=== PATIENT | female | born 1960 ===

== ENCOUNTER 2017-01-21 20:11 | Inpatient (IN) | payer BC, OTHER ==
[2017-01-21 20:14] VITALS: BMI 28.5
--- NOTE | 2017-01-21 20:48 | ED PDOC ---
Arrival/HPI - General Chief Complaint: Female Genitourinary Time Seen by Provider: 01/21/17 20:47 Historian: Patient - History of Present Illness Narrative History of Present Illness (Text): 01/21/17 20:48 This 56 yo female with pmh multiple UTI, pyelonephritis, htn, hypercholesterolemia, presents to tis ED for IV antibiotic treatment. Patient stated she has had multiple UTI this year. Patient developed urinary symptoms 2 1/2 [address] Nix, who recommended Macrobid. She finished Macrobid 7 days treatment last week. This week she saw Dr. Nix again, who repeat UA at her office 3 days ago, and ordered urine culture. Urine culture return today, and it shows multiple resisting bacteria. Dr. Nix called patient to go to ED. Patient brought a copy of urine culture report, which was printed on 01/20/2017, which shows sensitivity to Zosyn, Amikacin, Ertapenem, Gentamicin, Imipenem Only. Patient noted feeling intermittent chills, subjective low grade fever. Denies back pain, abdominal pain, sob, cp, goetz, rash, recent travel, or sick contact. Time/Duration: Other (see hpi) Context: Home Past Medical History - Provider Review Nursing Documentation Reviewed: Yes - Infectious Disease Hx of Infectious Diseases: None - Tetanus Immunization Tetanus Immunization: Unknown - Cardiac Hx Angina: No Hx Cardiac Arrhythmia: No Hx Circulatory Problems: No Hx Congestive Heart Failure: No Hx Heart Murmur: No Hx Heart Transplant: No Hx Hypertension: Yes Hx Internal Defibrillator: No Hx Mitral Valve Prolapse: No Hx Pacemaker: No Hx Peripheral Edema: No Hx Peripheral Vascular Disease: No - Pulmonary Hx Respiratory Disorders: No - Neurological Hx Neurological Disorder: No - HEENT Hx HEENT Disorder: No - Renal Hx Renal Disorder: No - Endocrine/Metabolic Hx Endocrine Disorders: No - Hematological/Oncological Hx Blood Disorders: No - Integumentary Hx Dermatological Disorder: No - Musculoskeletal/Rheumatological Hx Musculoskeletal Disorders: No Hx Falls: No - Gastrointestinal Hx Gastrointestinal Disorders: No - Genitourinary/Gynecological Hx Genitourinary Disorders: No Hx Reproductive Disorders: No Hx Urinary Tract Infection: Yes - Psychiatric Hx Psychophysiologic Disorder: No Hx Anxiety: Yes Hx Bipolar Disorder: No Hx Depression: Yes Hx Emotional Abuse: No Hx Physical Abuse: No Hx Schizophrenia: No Hx Sexual Abuse: No Hx Substance Use: No - Past Surgical History Past Surgical History: Non-Contributing - Surgical History Hx Cardiac Catheterization: No Hx Coronary Stent: No Hx Dilation and Curettage: Yes (1992) Other/Comment: Bladder lift with repair 03/2014 - Anesthesia Hx Anesthesia: Yes Hx Anesthesia Reactions: No Hx Malignant Hyperthermia: No - Suicidal Assessment Feels Threatened In Home Enviroment: No Family/Social History - Physician Review Nursing Documentation Reviewed: Yes Family/Social History: Other (non-contributory) Smoking Status: Never Smoked Hx Alcohol Use: No Hx Substance Use: No Hx Substance Use Treatment: No Allergies/Home Meds Allergies/Adverse Reactions: Allergies azithromycin [From Zithromax] Allergy (Verified 01/21/17 20:15) RASH cinoxacin Allergy (Verified 01/21/17 20:15) HEADACHE low BP diphenhydramine [From Benadryl] Allergy (Verified 01/21/17 20:15) FATIGUE low bp sulfamethoxazole [From Bactrim] Allergy (Verified 01/21/17 20:15) REDNESS trimethoprim [From Bactrim] Allergy (Verified 01/21/17 20:15) REDNESS Home Medications: Home Meds Medication Instructions Recorded Confirmed Lisinopril [Zestril] 20 mg PO BID 04/24/15 01/21/17 Metoprolol Tartrate [Lopressor] 25 mg PO HS 04/24/15 01/21/17 Sertraline HCl [Zoloft] 75 mg PO DAILY 04/24/15 01/21/17 LORazepam [Ativan] 0.5 mg PO DAILY PRN 01/21/17 01/21/17 Lurasidone HCl [Latuda] 1 tab PO DAILY 01/21/17 01/21/17 Review of Systems - Review of Systems Constitutional: Fevers. absent: Fatigue, Weight Change, Night Sweats Eyes: Normal ENT: Normal Respiratory: Normal. absent: SOB, Cough Cardiovascular: Normal. absent: Chest Pain, Palpitations Gastrointestinal: Normal. absent: Abdominal Pain, Nausea, Vomiting Genitourinary Female: Dysuria, Frequency. absent: Hematuria, Vaginal Bleeding, Vaginal Discharge Musculoskeletal: Normal. absent: Arthralgias, Back Pain, Neck Pain Skin: Normal. absent: Rash Neurological: Normal. absent: Headache, Dizziness, Focal Weakness, Gait Changes , Speech Changes, Facial Droop, Disequilibrium, Seizure Endocrine: Normal Hemo/Lymphatic: Normal Psychiatric: Normal Physical Exam Vital Signs Temp Pulse Resp BP Pulse Ox 01/21/17 20:50 156/95 H 01/21/17 20:20 99.1 F 75 18 162/112 H 97 Temperature: Afebrile Blood Pressure: Normal Pulse: Regular Respiratory Rate: Normal Appearance: Positive for: Well-Appearing, Non-Toxic, Comfortable Pain Distress: None Mental Status: Positive for: Alert and Oriented X 3 - Systems Exam Head: Present: Atraumatic, Normocephalic Pupils: Present: PERRL Extroacular Muscles: Present: EOMI Conjunctiva: Present: Normal Mouth: Present: Moist Mucous Membranes Neck: Present: Normal Range of Motion, Trachea Midline. No: Meningeal Signs, MIDLINE TENDERNESS, Paraspinal Tenderness, Lymphadenopathy Respiratory/Chest: Present: Clear to Auscultation, Good Air Exchange. No: Respiratory Distress, Accessory Muscle Use, Wheezes, Retracting, Rhonchi Cardiovascular: Present: Regular Rate and Rhythm, Normal S1, S2. No: Murmurs Abdomen: Present: Normal Bowel Sounds. No: Tenderness, Distention, Peritoneal Signs, Rebound, Guarding Back: Present: Normal Inspection. No: CVA Tenderness, Midline Tenderness, Paraspinal Tenderness Upper Extremity: Present: Normal Inspection, Normal ROM, NORMAL PULSES, Neurovascularly Intact, Capillary Refill < 2s. No: Cyanosis, Edema Lower Extremity: Present: Normal Inspection, NORMAL PULSES, Normal ROM, Neurovascularly Intact, Capillary Refill < 2 s. No: Edema Neurological: Present: GCS=15, CN II-XII Intact, Speech Normal, Motor Func Grossly Intact, Normal Sensory Function, Normal Cerebellar Funct, Gait Normal Skin: Present: Warm, Dry, Normal Color. No: Rashes Psychiatric: Present: Alert, Oriented x 3, Normal Insight, Normal Concentration Medical Decision Making ED Course and Treatment: 01/21/17 21:11 Urine culture demonstrates sensitivity to Zosyn . I will order this medication , labs, repeat urinalysis, urine culture, blood culture. 01/21/17 22:[address] Nix regarding patient history of multi resistant UTI. Dr. Fox agreed with plan for admission in Med Surg. Re-evaluation Time: 22:06 Reassessment Condition: Re-examined, Improving,but remains with symptoms - Lab Interpretations Lab Results: 01/21/17 20:40 01/21/17 20:40 Lab Results 01/21/17 20:40: PT 10.3, INR 0.95, APTT 31.2 H 01/21/17 20:40: Urine Color Yellow, Urine Appearance Sl cloudy, Urine pH 6.5, Ur Specific [place] 1.015, Urine Protein Negative, Urine Glucose (UA) Negative, Urine Ketones Negative, Urine Blood Trace-intact H, Urine Nitrate Positive H, Urine Bilirubin Negative, Urine Urobilinogen 0.2, Ur Leukocyte Esterase Large H , Urine RBC 5 - 10, Urine WBC Tntc, Urine Bacteria Many 01/21/17 20:40: Sodium 143, Potassium 3.7, Chloride 104, Carbon Dioxide 25, Anion Gap 18, BUN 19, Creatinine 0.7, Est GFR ( Amer) > 60, Est GFR (Non- Af Amer) > 60, Random Glucose 102, Calcium 9.2, Total Bilirubin 0.3, AST 15, ALT 26, Alkaline Phosphatase 73, Total Protein 7.0, Albumin 4.3, Globulin 2.7, Albumin/Globulin Ratio 1.6 01/21/17 20:40: WBC 5.6, RBC 4.25, Hgb 12.8, Hct 37.9, MCV 89.2, MCH 30.1, MCHC 33.8, RDW 12.6, Plt Count 234, MPV 8.7, Gran % 51.4, Lymph % (Auto) 38.2 H, Citrus % (Auto) 7.3 H, Eos % (Auto) 2.7, Baso % (Auto) 0.4, Gran # 2.90, Lymph # 2.2, Citrus # 0.4, Eos # 0.2, Baso # 0.02 I have reviewed the lab results: Yes Interpretation: Abnormal lab values (acute cystitis) - RAD Interpretation Radiology Orders: 01/21/17 20:59 CHEST PORTABLE [RAD] Stat - EKG Interpretation Interpreted by ED Physician: Yes (NSR @ 70 bpm. Normal interval) Type: 12 lead EKG Comparison: No previous EKG avail. - Medication Orders Current Medication Orders: Discontinued Medications Piperacillin Sod/Tazobactam Sod (Zosyn 4.5 Gm In Ns 100ml) 4.5 gm in 100 mls @ 200 mls/hr IVPB STAT STA PRN Reason: Protocol Stop: 01/21/17 21:27 Last Admin: 01/21/17 21:06 Dose: 200 mls/hr Sodium Chloride (Sodium Chloride 0.9%) 1,000 mls @ 999 mls/hr IV .Q1H1M STA Stop: 01/21/17 22:00 Last Admin: 01/21/17 21:08 Dose: 999 mls/hr Disposition/Present on Arrival - Present on Arrival Any Indicators Present on Arrival: No History of DVT/PE: No History of Uncontrolled Diabetes: No Urinary Catheter: No History of Decub. Ulcer: No History Surgical Site Infection Following: None - Disposition Have Diagnosis and Disposition been Completed?: Yes Diagnosis: Failure of outpatient treatment, Drug (multiple) resistant infection, Cystitis Disposition: HOSPITALIZED Disposition Time: 22:08 Patient Plan: Admission Condition: STABLE Forms: [employer] (Japanese)
[2017-01-21] MEDS ORDERED: Piperacill/Tazo 4.5gm in NS 4.5 GM/100 ML BAG IVPB STA (20:58)
[2017-01-21] MEDS ORDERED: Sodium Chloride 0.9% 1,000 ML IV STA (21:00)
[2017-01-21 21:13] LABS: BASO # 0.02 K/mm3 (0.0-2.0); BASO % 0.4 % (0.0-3.0); EOS # 0.2 (0.0-0.7); EOS % 2.7 % (1.5-5.0); GRAN # 2.9 (1.4-6.5); GRAN % 51.4 % (50.0-68.0); HEMATOCRIT 37.9 % (36.0-48.0); LYMPH # 2.2 (1.2-3.4); LYMPH % 38.2 % (22.0-35.0); MEAN CELL VOLUME 89.2 fl (80.0-105.0); MEAN CORPUSCULAR HEMOGLOBIN 30.1 pg (25.0-35.0); MEAN CORPUSCULAR HGB CONC 33.8 g/dl (31.0-37.0); MEAN PLATELET VOLUME 8.7 fl (7.0-11.0); MONO # 0.4 (0.1-0.6); MONO % 7.3 % (1.0-6.0); RED CELL DISTRIBUTION WIDTH 12.6 % (11.5-14.5); WHITE BLOOD COUNT 5.6 10^3/ul (4.5-11.0)
[2017-01-21 21:14] LABS: PH,URINE 6.5 (4.7-8.0); URINE BILIRUBIN NEGATIVE (NEGATIVE); URINE BLOOD TRACE-INTACT (NEGATIVE); URINE GLUCOSE (UA) NEGATIVE (NEGATIVE); URINE KETONE NEGATIVE (NEGATIVE); URINE LEUKOCYTE ESTERASE LARGE Leu/uL (NEGATIVE); URINE PROTEIN NEGATIVE mg/dL (<30 mg/dL); URINE UROBILINOGEN 0.2 E.U./dL (<1 E.U./dL)
[2017-01-21 21:19] LABS: URINE APPEARANCE SL CLOUDY (CLEAR); URINE COLOR YELLOW (YELLOW)
[2017-01-21 21:24] LABS: URINE BACTERIA MANY (NEG); URINE WBC TNTC /hpf (0-6)
[2017-01-21 21:25] LABS: ALB/GLOB RATIO 1.6 (1.1-1.8); ALKALINE PHOSPHATASE 73 U/L (38-133); ALT/SGPT 26 U/L (7-56); AST/SGOT 15 U/L (15-39); BILIRUBIN,TOTAL 0.3 mg/dL (0.2-1.3); BLOOD UREA NITROGEN 19 mg/dL (7-21); CALCIUM 9.2 mg/dL (8.4-10.5); CARBON DIOXIDE 25 mmol/L (21-33); CHLORIDE 104 mmol/L (98-107); GFR AFRICAN-AMERICAN > 60; GLUCOSE,RANDOM 102 mg/dL (70-110); POTASSIUM 3.7 mmol/L (3.6-5.0); SODIUM 143 mmol/L (132-148)
[2017-01-21 21:28] LABS: INR 0.95 (0.93-1.08); PARTIAL THROMBOPLASTIN TIME 31.2 Seconds (23.7-30.8)
[2017-01-22] MEDS: Divalproex 500 mg ER (ONCE DAILY formulation) PO SCH ×3 (02:17→22:07)
[2017-01-22] MEDS: Meropenem 1g/NS 100mL IVPB 1 GM/100 ML PIGGYBACK IVPB SCH ×4 (02:18→22:08)
--- NOTE | 2017-01-22 10:21 | RAD ---
HISTORY: admission COMPARISON: 03/09/2015 FINDINGS: LUNGS: No active pulmonary disease. PLEURA: No significant pleural effusion identified, no pneumothorax apparent. CARDIOVASCULAR: Normal. OSSEOUS STRUCTURES: No significant abnormalities. VISUALIZED UPPER ABDOMEN: Normal. OTHER FINDINGS: None. IMPRESSION: No active disease.
--- NOTE | 2017-01-22 10:35 | HP ---
HISTORY OF PRESENT ILLNESS: The patient is 56-year-old known to me from office practice. The patient has been complaining of some suprapubic discomfort, occasional flank discomfort and urinary discomfort intermittently for the last 2-3 months. She had urine culture done in office. Initial culture was positive. She was given 7 days of Cipro. After few weeks, she started to have urethral discomfort again so she had repeat cultures done. She was resistant to almost all p.o. medications although she has multiple allergies including sulfa also. So, she was only sensitive to nitrofurantoin that was given for 7 days, but repeat culture after two weeks grew E. coli again. She was given second course of nitrofurantoin that she finished last week, but urinary symptoms continued, so I had repeat culture done that grew E. coli resistant to almost all medications except nitrofurantoin, so I advise the patient since she is symptomatic and she has multidrug resistant UTI and multiple allergies, so she should be admitted to get IV antibiotic. She complained of suprapubic discomfort, she complained of flank discomfort off and on and stinging feeling upon urination. PAST MEDICAL HISTORY: She has significant past medical history of: 1. Hypertension. 2. History of fibroid uterus. 3. History of bipolar disorder. ALLERGIES: SHE IS ALLERGIC TO ZITHROMAX, CINOXACIN, DIPHENHYDRAMINE, SULFAMETHOXAZOLE. MEDICATIONS AT HOME: She is on Depakote 500 at bedtime, Zoloft 75 daily, metoprolol 25 at bedtime, lisinopril 20 mg twice a day, Latuda. SOCIAL HISTORY: She is . Denies smoking or drinking alcohol. 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 REVIEW OF SYSTEMS: Significant for suprapubic discomfort and urinary discomfort as if there is needle sticking in urethral area. PHYSICAL EXAMINATION: GENERAL: She is awake and alert, communicative. VITAL SIGNS: She has temperature of 99.1, pulse 75, respirations 18, blood pressure 162/112. LUNGS: Bilateral fair airflow. No rhonchi or crackles. HEART: S1 and S2, audible. ABDOMEN: Soft, some suprapubic discomfort. NEUROLOGIC: She is awake and alert, communicative. LABORATORY DATA: WBC 5.6, hemoglobin 12.8, hematocrit platelet of 234. PT 10.3, INR 0.95. Chemistry; sodium 143, potassium 3.7, chloride 104, CO2 of 25, BUN 19, creatinine 0.7. Blood sugar of 102. Urinalysis shows positive nitrites, large leukocyte and wbc's too numerous to count. ASSESSMENT AND PLAN: 1. Multidrug resistant urinary tract infection. 2. Failed outpatient treatment. 3. Polyuria. 4. History of depression. 5. History of bipolar disorder. 6. Hypertension. PLAN: Blood culture, urine culture are collected. The patient has been started on meropenem. ID consult by and I will also order for CT scan of the abdomen and pelvic and I will also request Dr. Hicks to evaluate the patient to rule out any anatomical dysfunction. Zuleyma Nix MD
--- NOTE | 2017-01-22 12:19 | PN ---
DATE: SUBJECTIVE: The patient is 56 years old seen and examined, doing well. No nausea or vomiting. No diarrhea. PHYSICAL EXAMINATION: VITAL SIGNS: She is afebrile, pulse 63, respiration 18, blood pressure 139/93. LUNGS: Bilateral fair air flow. No rhonchi or crackle. HEART: S1 and S2 audible. ABDOMEN: Soft, nontender. No rebound and no guarding. NEUROLOGIC: The patient is awake and alert, communicative. LABORATORY DATA: The urinalysis is positive for nitrates and leukocyte. Cultures are pending. ASSESSMENT: 1. Failed outpatient treatment. 2. Multiple recurrent urinary tract infection as outpatient. 3. History of depression. 4. Hypertension. PLAN: We will continue the patient on her renal medication. She is currently on meropenem, has been awaiting CT scan of the abdomen and pelvis. We will continue on meropenem. We will follow up this patient. Zuleyma Nix MD
[2017-01-22] MEDS ORDERED: Iohexol 350 MG/100 ML VIAL ONE (12:29)
[2017-01-22] MEDS: LURASIDONE HCL PO SCH (12:32)
--- NOTE | 2017-01-22 13:25 | CARD ---
APPROVED REPORT EKG Measurement Heart [id number] <Conclusion> Normal sinus rhythm Possible Left atrial enlargement Borderline ECG
--- NOTE | 2017-01-22 15:20 | CT ---
PROCEDURE: CT Abdomen and Pelvis with contrast HISTORY: recurrent UTI COMPARISON: None. TECHNIQUE: Contrast dose: 100 mL Omnipaque 350 Radiation dose: Total exam DLP = 640.32 mGy-cm. This CT exam was performed using one or more of the following dose reduction techniques: Automated exposure control, adjustment of the mA and/or kV according to patient size, and/or use of iterative reconstruction technique. FINDINGS: LOWER THORAX: Unremarkable. LIVER: Unremarkable. No gross lesion or ductal dilatation. GALLBLADDER AND BILE DUCTS: Unremarkable. PANCREAS: Unremarkable. No gross lesion or ductal dilatation. SPLEEN: Unremarkable. ADRENALS: Unremarkable. No mass. KIDNEYS AND URETERS: Unremarkable. No hydronephrosis. No solid mass. VASCULATURE: Unremarkable. No aortic aneurysm. BOWEL: Unremarkable. No obstruction. No gross mural thickening. APPENDIX: Not identified. PERITONEUM: Unremarkable. No free fluid. No free air. LYMPH NODES: Unremarkable. No enlarged lymph nodes. BLADDER: Unremarkable. REPRODUCTIVE: Normal uterus BONES: No acute fracture. OTHER FINDINGS: None. IMPRESSION: Unremarkable contrast enhanced CT of the abdomen and pelvis.
--- NOTE | 2017-01-23 03:04 | CON ---
DATE: 01/22/2017 CHIEF COMPLAINT: Weakness times several days. HISTORY OF PRESENT ILLNESS: This is a 56-year-old female with past medical history significant for urinary tract infections with hypertension, depression, and the patient is admitted this admission with diagnosis of failed outpatient medical treatment, started on intravenous antibiotics here, and the patient has been complaining of suprapubic discomfort and flank discomfort and urinary symptoms for several months, was given Cipro initially with some relief and then with recurrent symptoms, was given another antibiotic which also failed as outpatient, has grown E. coli resistant to all antibiotics as outpatient except for nitrofurantoin which was also given as outpatient and failed, and now is admitted with dysuria or frequency, and currently, on intravenous antibiotics started. Infectious disease consultation requested. REVIEW OF SYSTEMS: Revealed the patient of low-grade fevers and no chills. No chest pain or headaches. PAST MEDICAL HISTORY: Significant for hypertension, depression, urinary tract infections, high cholesterol, asthma, anxiety. PAST SURGICAL HISTORY: Significant for a D and C, and bladder lifting. SOCIAL HISTORY: She is not sexually active. MEDICATIONS: At home include Ativan, Depakote, Ambien, Zoloft, Lopressor, Zestril, Latuda. ALLERGIES: AZITHROMYCIN, CINOXACIN, DIPHENHYDRAMINE, SULFAMETHOXAZOLE, TRIMETHOPRIM. PHYSICAL EXAMINATION: VITAL SIGNS: The patient in bed with a temperature of 98, heart rate of 67, respiratory rate of 18, blood pressure is 140/70. HEENT: Unremarkable. NECK: Supple. LUNGS: Decreased breath sounds. HEART: Normal S1 and S2. ABDOMEN: Soft and nontender. No rebound or guarding. LABORATORY DATA: Reveals the white count to be 5.6, hemoglobin of 12, platelets of 234. The patient does have 38% lymphocytosis with 51% granulocytosis and coagulation is noted. Chemistries are negative and within normal limits. Urinalysis reveal too numerous to count wbc's, many bacteria, positive nitrites, large leukocyte esterase. Microbiology is pending. Microbiology from previous admission: Only 1 Proteus culture is available which is pansensitive from 05/2015. The patient had a CAT scan of the abdomen and pelvis, the results are not available. Dr. Nix 's note from today is reviewed. Dr. Nix's history and physical examination is also reviewed. The patient also had a chest x-ray which showed no active disease, and the emergency room chart written by Adelaide Joseph is also reviewed. ASSESSMENT AND PLAN: A 56-year-old female with hypertension, depression, hypercholesteremia, recurrent urinary tract infections, anxiety, and asthma, now with urinary tract infection which is symptomatic and significant dysuria which failed as outpatient with various antibiotics. We will treat the patient with meropenem. Awaiting for blood cultures, urine cultures and CAT scan of the abdomen and pelvis results. We will make further recommendations. The patient appears to be improving, she states with the meropenem. We will follow closely with you upon the availability of the blood and urine culture results. Luigi Wilson MD
[2017-01-23] MEDS: Meropenem 1g/NS 100mL IVPB 1 GM/100 ML PIGGYBACK IVPB SCH ×3 (05:29→22:21)
[2017-01-23] MEDS: LURASIDONE HCL PO SCH (10:00)
[2017-01-23] MEDS: Divalproex 500 mg ER (ONCE DAILY formulation) PO SCH ×2 (15:28→22:20)
--- NOTE | 2017-01-23 15:56 | PN ---
DATE: 01/23/2017 SUBJECTIVE: The patient is in bed, in no acute distress. PHYSICAL EXAMINATION VITAL SIGNS: Temperature is 98, blood pressure is 130/80, respiratory rate of 18. HEENT: Unremarkable. NECK: Supple. LUNGS: Decreased breath sounds. HEART: Normal S1 and S2. ABDOMEN: Soft, nontender. LABORATORY DATA: Reveals a white count of 5.6, hemoglobin of 12, platelets of 234, BUN of 19, creatinine of 0.7. Too numerous to count wbc's, many bacteria. Blood cultures are negative. Urine cultures are gram-negative brandi and review of medication reveals the patient is on meropenem. ASSESSMENT AND PLAN: A 56-year-old female with hypertension, depression, high cholesterol, recurrent urinary tract infections, anxiety, asthma with gram-negative brandi, urinary tract infection which is symptomatic, and dysuria and has failed multiple antibiotics as outpatient and had resistant gram-negatives as an outpatient. We will check on the identification of the gram-negative brandi in the urine. The blood cultures are reported to be negative so far. CAT scan of the abdomen and pelvis is also reviewed and noted. Unremarkable CAT scan. We will follow closely with you. Luigi Wilson MD
--- NOTE | 2017-01-23 18:51 | PN ---
DATE: 01/21/2017 SUBJECTIVE: The patient is 56 years old, seen and examined, states her symptoms have improved. No chest pain, no shortness of breath, no urethral discomfort. PHYSICAL EXAMINATION: VITAL SIGNS: She is afebrile, pulse 66, respirations 18, blood pressure 153/88. LUNGS: Bilateral fair air flow. No rhonchi or crackle. HEART: S1 and S2 audible. ABDOMEN: Soft, nontender. No rebound and no guarding. NEUROLOGIC: She is awake and alert, able to communicate, ambulatory. LABORATORY DATA: Her urine culture is growing gram negative rods, sensitivity to follow. Blood cultures are negative. ASSESSMENT AND PLAN: Multi-drug resistant urinary tract infection, resistant to Cipro and allergy to sulfa, failed outpatient treatment. So plan is currently the patient is on meropenem. Awaiting urology evaluation. I am not sure if this is because of postmenopausal symptom that she is getting recurrent urinary tract infection, she might benefit from vaginal estrogen hormone for short-term after she is evaluated by urologist. For now, we will continue on meropenem until the sensitivity is available. Zuleyma Nix MD
--- NOTE | 2017-01-23 22:22 | PCM.URO ---
Urology Progress Note - Subjective Dysuria: Yes (uti) - Objective Lab Studies: Reviewed (will need work up // plans : check ct, antibiotics, plan for cystoscopy when clear) Intake & Output: Intake & Output 01/23/17 01/23/17 01/24/17 06:59 18:59 06:59 Intake Total 360 1020 120 Balance 360 1020 120 Intake: Oral 360 1020 120 Other: # Voids Urine, Voided 2 2 # Bowel Movements 0 0 Vital Signs: Vital Signs - 24 hr 01/23/17 01/23/17 01/23/17 08:07 08:13 09:33 Temperature 98 F 98.0 F Pulse Rate 66 66 66 Respiratory 18 18 Rate Blood Pressure 133/88 133/88 133/68 O2 Sat by Pulse 90 L Oximetry 01/23/17 01/23/17 01/23/17 12:00 16:00 17:03 Temperature 98.1 F 98 F Pulse Rate 70 61 61 Respiratory 18 18 Rate Blood Pressure 120/80 141/97 H 141/97 H O2 Sat by Pulse Oximetry 01/23/17 18:35 Temperature Pulse Rate Respiratory Rate Blood Pressure 120/82 O2 Sat by Pulse Oximetry - Plan Intake & Output: Yes See Orders: Yes (ultasound)
[2017-01-24] MEDS: Meropenem 1g/NS 100mL IVPB 1 GM/100 ML PIGGYBACK IVPB SCH ×3 (05:43→21:55)
[2017-01-24] MEDS: LURASIDONE HCL PO SCH (09:22)
--- NOTE | 2017-01-24 14:11 | CP.PCM.PN ---
Subjective - Date & Time of Evaluation Date of Evaluation: 01/24/17 Time of Evaluation: 11:25 - Subjective Subjective: Comfortable, no fevers overnight, not in distress. Objective - Vital Signs/Intake and Output Vital Signs (last 24 hours): Temp Pulse Resp BP Pulse Ox 98 F 66 18 145/97 H 97 01/24/17 07:32 01/24/17 09:22 01/24/17 07:32 01/24/17 09:22 01/24/17 07:32 Intake and Output: 01/24/17 01/24/17 06:59 18:59 Intake Total 480 Balance 480 - Medications Medications: Current Medications Atorvastatin Calcium (Lipitor) 10 mg PO DIN [facility] Last Admin: 01/23/17 17:03 Dose: 10 mg Divalproex Sodium (Depakote Er(Once Daily)) 500 mg PO 1600 ANA PRN Reason: Protocol Last Admin: 01/23/17 15:28 Dose: 500 mg Divalproex Sodium (Depakote Er(Once Daily)) 500 mg PO HS [facility] PRN Reason: Protocol Last Admin: 01/23/17 22:20 Dose: 500 mg Home Med (Home Med) 1 unit PO DAILY [facility] Last Admin: 01/24/17 09:22 Dose: Not Given Meropenem 1g/NS 100mL IVPB (Meropenem 1g/Ns 100ml Ivpb) 1 gm in 100 mls @ 100 mls/hr IVPB Q8 ANA PRN Reason: Protocol Stop: 01/28/17 23:01 Last Admin: 01/24/17 05:43 Dose: 100 mls/hr Lisinopril (Zestril) 20 mg PO BID [facility] Last Admin: 01/24/17 09:22 Dose: 20 mg Lorazepam (Ativan) 0.5 mg PO TID PRN; Protocol PRN Reason: Anxiety Last Admin: 01/23/17 19:29 Dose: 0.5 mg Metoprolol Tartrate (Lopressor) 25 mg PO HS [facility] Last Admin: 01/23/17 22:19 Dose: 25 mg Sertraline HCl (Zoloft) 75 mg PO DAILY [facility] Last Admin: 01/24/17 09:22 Dose: 75 mg Zolpidem Tartrate (Ambien) 5 mg PO HS [facility] PRN Reason: Protocol Last Admin: 01/23/17 22:20 Dose: 5 mg - Labs Labs: PT 10.3 Seconds (9.9-11.8) 01/21/17 20:40 INR 0.95 (0.93-1.08) 01/21/17 20:40 APTT 31.2 Seconds (23.7-30.8) H 01/21/17 20:40 - Constitutional Appears: Non-toxic, No Acute Distress - Head Exam Head Exam: NORMAL INSPECTION - Neck Exam Neck Exam: absent: Meningismus - Respiratory Exam Respiratory Exam: Decreased Breath Sounds - Cardiovascular Exam Cardiovascular Exam: +S1, +S2 - GI/Abdominal Exam GI & Abdominal Exam: Soft. absent: Tenderness Assessment and Plan - Assessment and Plan (Free Text) Plan: Assessment Urinary tract infection with ESBL-producing multidrug-resistant E. coli HTN history of depression dyslipidemia history of recurrent UTI's anxiety disorder asthma Plan continue Merrem (Day 3) to complete 7-10 days of therapy - CT scan of the abdomen and pelvis is negative will monitor clinically
--- NOTE | 2017-01-24 16:20 | PN ---
DATE: SUBJECTIVE: The patient is 56 years old seen and examined lying in bed seems to be comfortable. She states her urinary symptoms are all most gone eating and tolerating. No fever. No chills. PHYSICAL EXAMINATION: VITAL SIGNS: She is afebrile, pulse 66, respirations 18, blood pressure 145/97. LUNGS: Bilateral fair airflow. No rhonchi or crackles. HEART: S1, S2 audible. ABDOMEN: Soft and nontender. No rebound. No guarding. NEUROLOGIC: She is awake and alert, communicative, and ambulatory. LABORATORY DATA: She had urine culture done per Gram-negative rods, sensitivity to follow. ASSESSMENT: 1. Recurrent urea. 2. Failed outpatient multiple antibiotic treatment. 3. 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 4. Hypertension. 5. History of depression. PLAN: We will continue patient on meropenem, CAT scan is negative waiting sensitivity report might need to do cystoscopy to figure out, if there is an E. coli paresthesia, but patient is reluctant, she want to be her to clean here Dr. Hicks, and then she will decide on pursuing. Zulemya Nix MD
[2017-01-24] MEDS: Divalproex 500 mg ER (ONCE DAILY formulation) PO SCH ×2 (17:06→21:55)
--- NOTE | 2017-01-24 19:57 | US ---
EXAM: US Retroperitoneal Limited, Renal EXAM DATE/TIME: 01/23/2017 10:20 PM CLINICAL HISTORY: 56 years old, female; Abnormal findings; Abnormal lab test; Abnormal kidney function lab tests; Additional info: Recurrent uti TECHNIQUE: Real-time ultrasound of the retroperitoneum (limited) with image documentation. COMPARISON: CT - ABD PELVIS IV CONTRAST ONLY 01/22/2017 12:35:05 PM FINDINGS: Right kidney: Right kidney measures approximately 12 x 4.6 x 6 cm.Corticomedullary differentiation is not visualized. There is a 1.2 x 1 x 1 cm parapelvic cyst.There is no pelvocaliectasis. There is expected intrarenal flow on color imaging Left kidney: Left kidney is partially obscured by bowel gas. Left kidney measures approximately 11.5 x 5.6 x 6 cm. Corticomedullary differentiation is visualized. There is no pelvocaliectasis. There is intrarenal blood flow on color imaging IMPRESSION: Normal renal ultrasound
[2017-01-25] MEDS: Meropenem 1g/NS 100mL IVPB 1 GM/100 ML PIGGYBACK IVPB SCH ×3 (06:29→22:23)
[2017-01-25] MEDS: LURASIDONE HCL PO SCH (09:55)
--- NOTE | 2017-01-25 13:41 | CP.PCM.PN ---
Subjective - Date & Time of Evaluation Date of Evaluation: 01/25/17 Time of Evaluation: 10:55 - Subjective Subjective: Comfortable in bed, no flank pain, no dysuria currently, no fever or chills, no nausea or vomiting. Objective - Vital Signs/Intake and Output Vital Signs (last 24 hours): Temp Pulse Resp BP Pulse Ox 97.6 F 68 20 164/103 H 95 01/25/17 07:45 01/25/17 07:45 01/25/17 07:45 01/25/17 07:45 01/25/17 07:45 Intake and Output: 01/25/17 01/25/17 06:59 18:59 Intake Total 900 Balance 900 - Medications Medications: Current Medications Atorvastatin Calcium (Lipitor) 10 mg PO DIN [facility] Last Admin: 01/24/17 17:06 Dose: 10 mg Divalproex Sodium (Depakote Er(Once Daily)) 500 mg PO 1600 [facility] PRN Reason: Protocol Last Admin: 01/24/17 17:06 Dose: 500 mg Divalproex Sodium (Depakote Er(Once Daily)) 500 mg PO HS [facility] PRN Reason: Protocol Last Admin: 01/24/17 21:55 Dose: 500 mg Home Med (Home Med) 1 unit PO DAILY [facility] Last Admin: 01/24/17 09:22 Dose: Not Given Meropenem 1g/NS 100mL IVPB (Meropenem 1g/Ns 100ml Ivpb) 1 gm in 100 mls @ 100 mls/hr IVPB Q8 [facility] PRN Reason: Protocol Stop: 01/28/17 23:01 Last Admin: 01/25/17 06:29 Dose: 100 mls/hr Lisinopril (Zestril) 20 mg PO BID [facility] Last Admin: 01/24/17 17:07 Dose: 20 mg Lorazepam (Ativan) 0.5 mg PO TID PRN; Protocol PRN Reason: Anxiety Last Admin: 01/23/17 19:29 Dose: 0.5 mg Metoprolol Tartrate (Lopressor) 25 mg PO HS [facility] Last Admin: 01/24/17 21:54 Dose: 25 mg Sertraline HCl (Zoloft) 75 mg PO DAILY [facility] Last Admin: 01/24/17 09:22 Dose: 75 mg Zolpidem Tartrate (Ambien) 5 mg PO HS [facility] PRN Reason: Protocol Last Admin: 01/24/17 21:55 Dose: 5 mg - Labs Labs: PT 10.3 Seconds (9.9-11.8) 01/21/17 20:40 INR 0.95 (0.93-1.08) 01/21/17 20:40 APTT 31.2 Seconds (23.7-30.8) H 01/21/17 20:40 - Constitutional Appears: Non-toxic, No Acute Distress - Head Exam Head Exam: NORMAL INSPECTION - Neck Exam Neck Exam: absent: Meningismus - Respiratory Exam Respiratory Exam: Decreased Breath Sounds - Cardiovascular Exam Cardiovascular Exam: +S1, +S2 - GI/Abdominal Exam GI & Abdominal Exam: Soft. absent: Tenderness Assessment and Plan - Assessment and Plan (Free Text) Plan: Assessment Urinary tract infection with ESBL-producing multidrug-resistant E. coli HTN history of depression dyslipidemia history of recurrent UTI's anxiety disorder asthma Plan continue Merrem (Day 4) to complete 7-10 days of therapy - CT scan of the abdomen and pelvis is negative will continue to monitor clinically
[2017-01-25] MEDS: Divalproex 500 mg ER (ONCE DAILY formulation) PO SCH ×2 (17:06→22:22)
--- NOTE | 2017-01-26 02:19 | PN ---
DATE: 01/25/2017 SUBJECTIVE: The patient has no complaints of any chest pain. No shortness of breath, no headaches or dizziness. PHYSICAL EXAMINATION VITAL SIGNS: Temperature is 98.3, pulse is 67, blood pressure 132/84 and respirations 20. GENERAL: The patient is lying in bed, flat, comfortable. HEENT: No oral lesion. Anicteric sclerae. Moist mucosa. NECK: No JVD, adenopathy, or thyromegaly. CARDIOVASCULAR: S1 and S2, regular. No murmurs, rubs, or gallops. LUNGS: Clear to auscultation bilaterally. No wheeze, rales, or rhonchi. ABDOMEN: Bowel sounds are positive, soft, nontender and nondistended. EXTREMITIES: No cyanosis, clubbing or edema. LABORATORY DATA: White count is 5.6, hemoglobin 12.8 and creatinine 0.7. Renal ultrasound done, is a normal renal ultrasound. ASSESSMENT: 1. Urinary tract infection secondary to Escherichia coli, ESBL. 2. Hypertension. 3. Dyslipidemia. 4. Recurrent urinary tract infection. PLAN: The patient is currently on antibiotics. She does have a UTI with ESBL. She is on meropenem. She is currently on day #4 of antibiotics, Rocephin. A CT of the abdomen and pelvis was done which was negative. She is on Ambien for sleep. She is going to be on Depakote. She is receiving lisinopril for her hypertension. She is on Zoloft for her depression. Brody Leach MD
[2017-01-26] MEDS: Meropenem 1g/NS 100mL IVPB 1 GM/100 ML PIGGYBACK IVPB SCH ×3 (06:30→21:56)
[2017-01-26 08:06] LABS: BASO # 0.03 K/mm3 (0.0-2.0); BASO % 0.6 % (0.0-3.0); EOS # 0.3 (0.0-0.7); EOS % 5.4 % (1.5-5.0); GRAN # 2.57 (1.4-6.5); GRAN % 49.4 % (50.0-68.0); HEMATOCRIT 37.1 % (36.0-48.0); LYMPH # 1.8 (1.2-3.4); MEAN CELL VOLUME 89.6 fl (80.0-105.0); MEAN CORPUSCULAR HEMOGLOBIN 29.7 pg (25.0-35.0); MEAN CORPUSCULAR HGB CONC 33.2 g/dl (31.0-37.0); MEAN PLATELET VOLUME 8.5 fl (7.0-11.0); MONO # 0.5 (0.1-0.6); MONO % 9.6 % (1.0-6.0); RED CELL DISTRIBUTION WIDTH 12.5 % (11.5-14.5); WHITE BLOOD COUNT 5.2 10^3/ul (4.5-11.0)
[2017-01-26 08:13] LABS: ALB/GLOB RATIO 1.4 (1.1-1.8); ALKALINE PHOSPHATASE 63 U/L (38-133); ALT/SGPT 25 U/L (7-56); AST/SGOT 24 U/L (15-39); BILIRUBIN,TOTAL 0.3 mg/dL (0.2-1.3); BLOOD UREA NITROGEN 13 mg/dL (7-21); CALCIUM 9.1 mg/dL (8.4-10.5); CARBON DIOXIDE 29 mmol/L (21-33); CHLORIDE 106 mmol/L (98-107); GFR AFRICAN-AMERICAN > 60; GLUCOSE,RANDOM 90 mg/dL (70-110); POTASSIUM 4.7 mmol/L (3.6-5.0); SODIUM 146 mmol/L (132-148); TOTAL PROTEIN 6.9 g/dL (5.8-8.3)
[2017-01-26] MEDS: LURASIDONE HCL PO SCH (09:16)
--- NOTE | 2017-01-26 14:47 | CP.PCM.PN ---
Subjective - Date & Time of Evaluation Date of Evaluation: 01/26/17 Time of Evaluation: 11:30 - Subjective Subjective: Comfortable in bed, not in distress, afebrile, no flank pain, no dysuria, no nausea. Objective - Vital Signs/Intake and Output Vital Signs (last 24 hours): Temp Pulse Resp BP Pulse Ox 98.2 F 84 20 136/85 97 01/25/17 16:00 01/25/17 22:23 01/25/17 16:00 01/25/17 22:23 01/25/17 16:00 Intake and Output: 01/26/17 01/26/17 06:59 18:59 Intake Total 1020 Balance 1020 - Medications Medications: Current Medications Atorvastatin Calcium (Lipitor) 10 mg PO DIN [facility] Last Admin: 01/25/17 17:06 Dose: 10 mg Divalproex Sodium (Depakote Er(Once Daily)) 500 mg PO 1600 [facility] PRN Reason: Protocol Last Admin: 01/25/17 17:06 Dose: 500 mg Divalproex Sodium (Depakote Er(Once Daily)) 500 mg PO HS [facility] PRN Reason: Protocol Last Admin: 01/25/17 22:22 Dose: 500 mg Home Med (Home Med) 1 unit PO DAILY [facility] Last Admin: 01/25/17 09:55 Dose: Not Given Meropenem 1g/NS 100mL IVPB (Meropenem 1g/Ns 100ml Ivpb) 1 gm in 100 mls @ 100 mls/hr IVPB Q8 [facility] PRN Reason: Protocol Stop: 01/28/17 23:01 Last Admin: 01/26/17 06:30 Dose: 100 mls/hr Lisinopril (Zestril) 20 mg PO BID [facility] Last Admin: 01/25/17 17:06 Dose: 20 mg Lorazepam (Ativan) 0.5 mg PO TID PRN; Protocol PRN Reason: Anxiety Last Admin: 01/23/17 19:29 Dose: 0.5 mg Metoprolol Tartrate (Lopressor) 25 mg PO HS [facility] Last Admin: 01/25/17 22:23 Dose: 25 mg Sertraline HCl (Zoloft) 75 mg PO DAILY [facility] Last Admin: 01/25/17 09:54 Dose: 75 mg Zolpidem Tartrate (Ambien) 5 mg PO HS [facility] PRN Reason: Protocol Last Admin: 01/25/17 22:23 Dose: 5 mg - Labs Labs: PT 10.3 Seconds (9.9-11.8) 01/21/17 20:40 INR 0.95 (0.93-1.08) 01/21/17 20:40 APTT 31.2 Seconds (23.7-30.8) H 01/21/17 20:40 - Constitutional Appears: Non-toxic, No Acute Distress - Head Exam Head Exam: NORMAL INSPECTION - ENT Exam ENT Exam: Mucous Membranes Moist - Neck Exam Neck Exam: absent: Meningismus - Respiratory Exam Respiratory Exam: Decreased Breath Sounds - Cardiovascular Exam Cardiovascular Exam: +S1, +S2 - GI/Abdominal Exam GI & Abdominal Exam: Soft. absent: Tenderness Assessment and Plan - Assessment and Plan (Free Text) Plan: Assessment Urinary tract infection with ESBL-producing multidrug-resistant E. coli HTN history of depression dyslipidemia history of recurrent UTI's anxiety disorder asthma Plan continue Merrem (Day 5) to complete 7-10 days of therapy - CT scan of the abdomen and pelvis is negative will continue to monitor clinically
[2017-01-26] MEDS: Divalproex 500 mg ER (ONCE DAILY formulation) PO SCH ×2 (17:06→21:56)
--- NOTE | 2017-01-27 03:43 | PN ---
DATE: 01/26/2017 SUBJECTIVE: The patient has no complaints of any chest pain, shortness of breath, headaches or dizziness. PHYSICAL EXAMINATION: VITAL SIGNS: Temperature is 98.3, pulse is 64, blood pressure is 147/91 and respirations 20. GENERAL: The patient is lying in bed, flat, comfortable. HEENT: No oral lesion. Anicteric sclerae. Moist mucosa. NECK: No JVD, adenopathy, or thyromegaly. CARDIOVASCULAR: S1 and S2, regular. No murmurs, rubs, or gallops. LUNGS: Clear to auscultation bilaterally. No wheeze, rales, or rhonchi. ABDOMEN: Bowel sounds are positive, soft, nontender and nondistended. EXTREMITIES: No cyanosis, clubbing or edema. LABORATORY DATA: White count is 5.2, hemoglobin 12.3 and creatinine 0.6. ASSESSMENT: 1. Urinary tract infection secondary to ESBL. 2. Hypertension. 3. Dyslipidemia. 4. Recurrent urinary tract infection. PLAN: The patient is currently comfortable. The patient is currently on antibiotics. She is on day #5 out of 7 for meropenem. She is going to continue with her Depakote. She is on Lipitor for dyslipidemia. She is on for sleep. She is on lisinopril for hypertension. Brody Leach MD
[2017-01-27] MEDS: Meropenem 1g/NS 100mL IVPB 1 GM/100 ML PIGGYBACK IVPB SCH ×3 (06:28→22:53)
[2017-01-27] MEDS: LURASIDONE HCL PO SCH (10:51)
--- NOTE | 2017-01-27 11:39 | CP.PCM.PN ---
Subjective - Date & Time of Evaluation Date of Evaluation: 01/27/17 Time of Evaluation: 11:00 - Subjective Subjective: Comfortable in bed, no fevers, not in distress. Objective - Vital Signs/Intake and Output Vital Signs (last 24 hours): Temp Pulse Resp BP Pulse Ox 98.3 F 64 20 147/91 H 99 01/26/17 16:00 01/26/17 22:06 01/26/17 16:00 01/26/17 22:06 01/26/17 16:00 Intake and Output: 01/26/17 01/27/17 18:59 06:59 Intake Total 780 960 Balance 780 960 - Medications Medications: Current Medications Atorvastatin Calcium (Lipitor) 10 mg PO DIN [facility] Last Admin: 01/26/17 17:07 Dose: 10 mg Divalproex Sodium (Depakote Er(Once Daily)) 500 mg PO 1600 [facility] PRN Reason: Protocol Last Admin: 01/26/17 17:06 Dose: 500 mg Divalproex Sodium (Depakote Er(Once Daily)) 500 mg PO HS [facility] PRN Reason: Protocol Last Admin: 01/26/17 21:56 Dose: 500 mg Home Med (Home Med) 1 unit PO DAILY [facility] Last Admin: 01/26/17 09:16 Dose: Not Given Meropenem 1g/NS 100mL IVPB (Meropenem 1g/Ns 100ml Ivpb) 1 gm in 100 mls @ 100 mls/hr IVPB Q8 [facility] PRN Reason: Protocol Stop: 01/28/17 23:01 Last Admin: 01/27/17 06:28 Dose: 100 mls/hr Lisinopril (Zestril) 20 mg PO BID [facility] Last Admin: 01/26/17 17:07 Dose: 20 mg Lorazepam (Ativan) 0.5 mg PO TID PRN; Protocol PRN Reason: Anxiety Last Admin: 01/23/17 19:29 Dose: 0.5 mg Metoprolol Tartrate (Lopressor) 25 mg PO HS [facility] Last Admin: 01/26/17 22:06 Dose: 25 mg Sertraline HCl (Zoloft) 75 mg PO DAILY [facility] Last Admin: 01/26/17 09:15 Dose: 75 mg Zolpidem Tartrate (Ambien) 5 mg PO HS [facility] PRN Reason: Protocol Last Admin: 01/26/17 22:49 Dose: 5 mg - Labs Labs: 01/26/17 07:45 01/26/17 07:45 PT 10.3 Seconds (9.9-11.8) 01/21/17 20:40 INR 0.95 (0.93-1.08) 01/21/17 20:40 APTT 31.2 Seconds (23.7-30.8) H 01/21/17 20:40 - Constitutional Appears: Non-toxic, No Acute Distress - Head Exam Head Exam: NORMAL INSPECTION - ENT Exam ENT Exam: Mucous Membranes Moist - Neck Exam Neck Exam: absent: Lymphadenopathy, Meningismus - Respiratory Exam Respiratory Exam: Decreased Breath Sounds - Cardiovascular Exam Cardiovascular Exam: +S1, +S2 - GI/Abdominal Exam GI & Abdominal Exam: Soft. absent: Tenderness Assessment and Plan - Assessment and Plan (Free Text) Plan: Assessment Urinary tract infection with ESBL-producing multidrug-resistant E. coli HTN history of depression dyslipidemia history of recurrent UTI's anxiety disorder asthma Plan continue Merrem (Day 6) to complete 7-10 days of therapy - CT scan of the abdomen and pelvis is negative will continue to follow clinically
[2017-01-27 16:16] VITALS: RESP 20
[2017-01-27] MEDS: Divalproex 500 mg ER (ONCE DAILY formulation) PO SCH ×2 (17:48→22:55)
--- NOTE | 2017-01-27 22:40 | PN ---
DATE: 01/27/2017 SUBJECTIVE: The patient has no complaints of any chest pain, no shortness of breath, no headaches or dizziness. PHYSICAL EXAMINATION: VITAL SIGNS: Temperature is 98.4, pulse of 64, blood pressure is 131/91 and respirations 18. GENERAL: The patient is lying in bed, flat, comfortable. HEENT: No oral lesion. Anicteric sclerae. Moist mucosa. NECK: No JVD, adenopathy, or thyromegaly. CARDIOVASCULAR: S1 and S2, regular. No murmurs, rubs, or gallops. LUNGS: Clear to auscultation bilaterally. No wheeze, rales, or rhonchi. ABDOMEN: Bowel sounds are positive, soft, nontender and nondistended. EXTREMITIES: No cyanosis, clubbing or edema. LABORATORY DATA: White count is 5.2, hemoglobin 12.3 and creatinine 0.6. ASSESSMENT: 1. Sepsis secondary to urinary tract infection, secondary to extended-spectrum beta-lactamase. 2. Hypertension. 3. Dyslipidemia. 4. Recurrent urinary tract infection. PLAN: The patient is currently comfortable. She is getting IV antibiotics with meropenem. She is on day #6 out of 7. The patient is on lisinopril for her hypertension. She is on Depakote. She is on Lipitor for dyslipidemia. She is on Zoloft. She will be discharged tomorrow after her antibiotics. Brody Leach MD
[2017-01-28] MEDS: Meropenem 1g/NS 100mL IVPB 1 GM/100 ML PIGGYBACK IVPB SCH ×2 (05:55→13:05)
[2017-01-28 08:17] VITALS: BP 116/82; PULSE 68; TEMP 98.1; O2SAT 96
[2017-01-28] MEDS: LURASIDONE HCL PO SCH (10:08)
--- NOTE | 2017-01-28 12:09 | DS ---
HISTORY OF PRESENT ILLNESS: This is a 56-year-old female who had come into the hospital. She was found to have ESBL UTI. The patient was started on IV antibiotic with meropenem. She had evaluation by Infectious Disease and by Urology. She has finished 7 days of antibiotics. She is going to be discharged home today. She has no complaints of any headaches or dizziness. No nausea. No vomiting. PHYSICAL EXAMINATION: VITAL SIGNS: Temperature 98.4, pulse is 64, blood pressure 131/91, and respirations 20. GENERAL: The patient is lying in bed, flat, comfortable. HEENT: No oral lesion. Anicteric sclerae. Moist mucosa. NECK: No JVD, adenopathy, or thyromegaly. CARDIOVASCULAR: S1 and S2, regular. No murmurs, rubs, or gallops. LUNGS: Clear to auscultation bilaterally. No wheeze, rales, or rhonchi. ABDOMEN: Bowel sounds are positive, soft, nontender and nondistended. EXTREMITIES: No cyanosis, clubbing or edema. ASSESSMENT: 1. Urinary tract infection secondary to extended-spectrum beta-lactamase. 2. Hypertension. 3. Dyslipidemia. 4. Recurrent urinary tract infection. PLAN: The patient is currently on Ativan as needed. She takes Ambien for sleep because of insomnia. She is on her Lipitor for dyslipidemia. She is on metoprolol. The patient is currently on lisinopril for hypertension. Condition is stable. Activities increase as tolerated. Followup with Dr. Nix in 1-2 weeks after discharge. Brody Leach MD
--- NOTE | 2017-01-29 02:51 | PN ---
DATE: 01/28/2017 SUBJECTIVE: Patient is seen in bed in no acute distress, nontoxic. PHYSICAL EXAMINATION: VITAL SIGNS: Temperature is 98, blood pressure is 120/70 and respiratory rate is 16. HEENT: Unremarkable. NECK: Supple. LUNGS: Decreased breath sounds. HEART: Normal S1 and S2. ABDOMEN: Soft and nontender. LABORATORY DATA: Reveals a white count of 5.2 and hemoglobin of 12. Chemistries are noted and urinalysis is noted. Urology is reviewed. ASSESSMENT AND PLAN: A 56-year-old female seen earlier this morning in room #560, she was doing much better, admitted with urinary tract infection and extended-spectrum beta lactamases producing multidrug resistant Escherichia coli, failed with that multiple attempts as outpatient therapy in a patient with hypertension, history of depression, dyslipidemia and has completed 7-day of meropenem. Patient is for possible discharge today. Luigi Wilson MD
== END 2017-01-28 14:55 | disposition home or self-care (01) | DRG 690 ==
LOC: ED 20:11 → ERH 22:08 → 5RNO 23:23
PROVIDERS: ADMIT Internal Medicine; ATTEND Internal Medicine
DX: N39.0 Urinary tract infection, site not specified (principal); B96.20 Unspecified Escherichia coli [E. coli] as the cause of diseases classified elsewhere; Z16.12 Extended spectrum beta lactamase (ESBL) resistance; Z16.24 Resistance to multiple antibiotics; I10 Essential (primary) hypertension; F31.9 Bipolar disorder, unspecified; D25.9 Leiomyoma of uterus, unspecified; E78.5 Hyperlipidemia, unspecified; F41.9 Anxiety disorder, unspecified; E78.00 Pure hypercholesterolemia, unspecified; J45.909 Unspecified asthma, uncomplicated